=== PATIENT | female | born 1940 | race Caucasian/White ===

== ENCOUNTER 2017-12-08 08:59 | Emergency (ER) | payer OTHER ==
[~2017-12-08] VITALS: Ht 162.6 cm; Wt 74.0 kg
[~2017-12-08 08:59] MED LIST: ATOR10 PO
[2017-12-08 09:08] VITALS: BP 210/106; PULSE 55; RESP 18; TEMP 98.4; O2SAT 97
[2017-12-08] MEDS ORDERED: SODIUM CHLORIDE 0.9% FLUSH 10 ML FLUSH IVF PRN (09:15)
[2017-12-08] MEDS ORDERED: ASPIRIN 325 MG TAB PO ONE (09:15)
[2017-12-08] MEDS ORDERED: FAMOTIDINE 20 MG/2 ML VIAL IV PUSH ONE (09:15)
[2017-12-08] MEDS ORDERED: LIDOCAINE VISCOUS 2% SOLN 15 ML UDC PO ONE (09:15)
[2017-12-08] MEDS ORDERED: PANTOPRAZOLE SODIUM 40 MG VIAL IVP ONE (09:15)
[2017-12-08] MEDS ORDERED: ALUMINUM/MAGNESIUM/SIMETH 30 ML CUP PO ONE (09:15)
--- NOTE | 2017-12-08 09:15 | PD ---
HPI Chief Complaint: Chest Pain Time Seen by Provider: 09:11 Travel History International Travel<30 days: No Contact w/Intl Traveler<30days: No Traveled to known affect area: No History of Present Illness HPI Patient presents with complaints of left-sided chest pain radiating to her left neck and left arm. Reports a high intensity cardiac workout Sunday night which was difficult for her. States she was physically worn out on . Reports 3 days of constant left arm her neck and chest discomfort with uncontrolled indigestion. Denies any diaphoresis shortness of breath. Denies diabetes. Nonsmoker. Reports a cardiac history of SVT with ablation and hyperlipidemia. PFSH Past Medical History Cancer: Yes (LT BREAST) Cardiac Catheterization: Yes Cardiovascular Problems: Yes High Cholesterol: Yes Diminished Hearing: No ?: Not Past Surgical History Cardiac Surgery: Yes (ABLATION 2000 VTA) Gynecologic Surgery: Yes (LT LUMPECTOMY) Tonsillectomy: Yes Other Surgery: Yes (LEFT BREAST LUMPECTOMY) Social History Alcohol Use: Yes (SOCIAL) Tobacco Use: No Substance Use: No Allergies-Medications (Allergen,Severity, Reaction): Coded Allergies: iodine (Verified Allergy, Severe, Dizziness, 12/08/17) Reported Meds & Prescriptions Reported Meds & Active Scripts Active Reported Tylenol (Acetaminophen) 325 Mg Tab 325 Mg PO ONCE Famotidine 10 Mg Tab 10 Mg PO HS Atorvastatin (Atorvastatin Calcium) 20 Mg Tab 20 Mg PO HS Review of Systems General / Constitutional: No: Fever Eyes: No: Visual changes HENT: No: Headaches Cardiovascular: Positive: Chest Pain or Discomfort Respiratory: No: Shortness of Breath Gastrointestinal: No: Abdominal Pain Genitourinary: No: Dysuria Musculoskeletal: No: Pain Skin: No Rash Neurologic: No: Weakness Psychiatric: No: Depression Endocrine: No: Polydipsia Hematologic/Lymphatic: No: Easy Bruising Physical Exam Narrative GENERAL: Well-nourished, well-developed patient. SKIN: Focused skin assessment warm/dry. HEAD: Normocephalic. EYES: No scleral icterus. No injection or drainage. NECK: Supple, trachea midline. No JVD or lymphadenopathy. CARDIOVASCULAR: Regular rate and rhythm without murmurs, gallops, or rubs. RESPIRATORY: Breath sounds equal bilaterally. No accessory muscle use. GASTROINTESTINAL: Abdomen soft, non-tender, nondistended. MUSCULOSKELETAL: No cyanosis, or edema. BACK: Nontender without obvious deformity. No CVA tenderness. Data Data Last Documented VS Vital Signs Date Time Temp Pulse Resp B/P (MAP) Pulse Ox O2 Delivery O2 Flow Rate FiO2 12/08/17 10:32 68 18 179/80 (113) 97 Room Air 12/08/17 09:08 98.4 Orders Orders Electrocardiogram (12/08/17 09:11) Ckmb (Isoenzyme) Profile (12/08/17 09:11) Complete Blood Count With Diff (12/08/17 09:11) Comprehensive Metabolic Panel (12/08/17 09:11) Magnesium (Mg) (12/08/17 09:11) Prothrombin Time / Inr (Pt) (12/08/17 09:11) Act Partial Throm Time (Ptt) (12/08/17 09:11) Troponin I (12/08/17 09:11) Ecg Monitoring (12/08/17 09:11) Bilateral Bp Monitoring (12/08/17 09:11) Iv Access Insert/Monitor (12/08/17 09:11) Oximetry (12/08/17 09:11) Oxygen Administration (12/08/17 09:11) Aspirin (Aspirin) (12/08/17 09:15) Sodium Chloride 0.9% Flush (Ns Flush) (12/08/17 09:15) Chest, Pa & Lat (12/08/17 09:11) Pantoprazole Inj (Protonix Inj) (12/08/17 09:15) Famotidine Inj (Pepcid Inj) (12/08/17 09:15) Al-Mag Hy-Si 40-40-4 Mg/Ml Liq (Mag-Al P (12/08/17 09:15) Lidocaine 2% Viscous (Xylocaine 2% Visco (12/08/17 09:15) CKMB (12/08/17 09:04) CKMB% (12/08/17 09:04) Labs Laboratory Tests Test 12/08/17 09:04 12/08/17 09:05 Prothrombin Time 10.7 SEC Prothromb Time International Ratio 1.1 RATIO Activated Partial Thromboplast Time 26.1 SEC Blood Urea Nitrogen 17 MG/DL Creatinine 0.90 MG/DL Random Glucose 101 MG/DL Total Protein 7.5 GM/DL Albumin 3.6 GM/DL Calcium Level 8.8 MG/DL Magnesium Level 2.2 MG/DL Alkaline Phosphatase 51 U/L Aspartate Amino Transf (AST/SGOT) 22 U/L Alanine Aminotransferase (ALT/SGPT) 14 U/L Total Bilirubin 0.5 MG/DL Sodium Level 140 MEQ/L Potassium Level 3.8 MEQ/L Chloride Level 106 MEQ/L Carbon Dioxide Level 28.0 MEQ/L Anion Gap 6 MEQ/L Estimat Glomerular Filtration Rate 60 ML/MIN Total Creatine Kinase 170 U/L Creatine Kinase MB 0.8 NG/ML Troponin I LESS THAN 0.02 NG/ML White Blood Count 5.5 TH/MM3 Red Blood Count 4.43 MIL/MM3 Hemoglobin 14.2 GM/DL Hematocrit 41.4 % Mean Corpuscular Volume 93.4 FL Mean Corpuscular Hemoglobin 32.0 PG Mean Corpuscular Hemoglobin Concent 34.2 % Red Cell Distribution Width 13.5 % Platelet Count 174 TH/MM3 Mean Platelet Volume 8.6 FL Neutrophils (%) (Auto) 50.1 % Lymphocytes (%) (Auto) 40.4 % Monocytes (%) (Auto) 6.7 % Eosinophils (%) (Auto) 1.5 % Basophils (%) (Auto) 1.3 % Neutrophils # (Auto) 2.7 TH/MM3 Lymphocytes # (Auto) 2.2 TH/MM3 Monocytes # (Auto) 0.4 TH/MM3 Eosinophils # (Auto) 0.1 TH/MM3 Basophils # (Auto) 0.1 TH/MM3 CBC Comment DIFF FINAL Differential Comment MDM Medical Decision Making Medical Screen Exam Complete: Yes Emergency Medical Condition: Yes Differential Diagnosis Acute coronary syndrome, musculoskeletal pain, pneumonia Narrative Course Assessment and plan discussed with patient at bedside. EKG reveals sinus bradycardia rate of 55. Cardiac enzymes are negative. Last 72 hours Impressions Chest X-Ray 12/08/17 0911 Signed Impressions: Service Date/Time: Friday, December 08, 2017 09:25 - CONCLUSION: No acute disease. Hernán Vance MD Diagnosis Primary Impression: Musculoskeletal pain Patient Instructions: General Instructions Additional Instructions: Tylenol and Motrin for discomfort, encouraged exercises in moderation, follow- up with PCP, return to emergency with any onset of new symptoms. Med/Other Pt SpecificInfo: No Meds Exist/No RX given Disposition: 01 DISCHARGE HOME Condition: Good Isiah,Jaquan R. MD Dec 08, 2017 09:15
[2017-12-08] MEDS ORDERED: TYLE325T PO (09:16)
[2017-12-08] MEDS ORDERED: FAMO1TAB30 PO (09:16)
[2017-12-08] MEDS ORDERED: ATOR20TA15 PO (09:16)
[2017-12-08 09:18] VITALS: BP 183/86; PULSE 55; RESP 18; O2SAT 97
[2017-12-08 09:20] LABS: AUTOMATED NEUTROPHIL # 2.7 TH/MM3 (1.8-7.7); BASOPHIL # 0.1 TH/MM3 (0-0.2); BASOPHIL % 1.3 % (0.0-2.0); EOSINOPHIL # 0.1 TH/MM3 (0-0.4); EOSINOPHIL % 1.5 % (0.0-4.0); HEMATOCRIT 41.4 % (35.0-46.0); HEMOGLOBIN 14.2 GM/DL (11.6-15.3); LYMPH % 40.4 % (9.0-44.0); LYMPHOCYTE # 2.2 TH/MM3 (1.0-4.8); MEAN CELL VOLUME 93.4 FL (80.0-100.0); MEAN CORPUSCULAR HGB CONC 34.2 % (32.0-36.0); MEAN PLATELET VOLUME 8.6 FL (7.0-11.0); MONO % 6.7 % (0.0-8.0); MONOCYTE # 0.4 TH/MM3 (0-0.9); NEUT % 50.1 % (16.0-70.0); PLATELET COUNT 174 TH/MM3 (150-450); RED BLOOD COUNT 4.43 MIL/MM3 (4.00-5.30); RED CELL DISTRIBUTION WIDTH 13.5 % (11.6-17.2); WHITE BLOOD COUNT 5.5 TH/MM3 (4.0-11.0)
[2017-12-08 09:39] LABS: INTERNATIONAL NORMALIZED RATIO 1.1 RATIO; PROTHROMBIN TIME - PATIENT 10.7 SEC (9.8-11.6)
--- NOTE | 2017-12-08 09:39 | RADRPT ---
EXAM DATE/TIME: 12/08/2017 09:25 [facility] COMPARISON: No previous studies available for comparison. INDICATIONS : Chest pressure. MEDICAL HISTORY : None. SURGICAL HISTORY : Ablation ENCOUNTER: Initial ACUITY: 1 week PAIN SCORE: 0/10 LOCATION: Bilateral chest FINDINGS: The heart size is normal. The lungs are free of focal consolidation. There do appear to be a few scat tered calcified granulomas present. No effusion is seen. Clips are seen in the left axillary region. 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 CONCLUSION: No acute disease. Hernán Vance MD on December 08, 2017 at 9:37 Board Certified Radiologist. This report was verified electronically.
[2017-12-08 10:14] LABS: CHLORIDE 106 MEQ/L (98-107); SODIUM (NA) 140 MEQ/L (136-145)
[2017-12-08 10:18] LABS: ALBUMIN 3.6 GM/DL (3.4-5.0); BLOOD UREA NITROGEN 17 MG/DL (7-18); CALCIUM 8.8 MG/DL (8.5-10.1); GLUCOSE,RANDOM 101 MG/DL (74-106); MAGNESIUM 2.2 MG/DL (1.5-2.5)
[2017-12-08 10:21] LABS: ALT (GPT) 14 U/L (10-53); AST (GOT) 22 U/L (15-37); GLOMERULAR FILTRATION RATE 60 ML/MIN (>89)
[2017-12-08 10:23] LABS: TOTAL BILIRUBIN ADULT 0.5 MG/DL (0.2-1.0); TOTAL PROTEIN 7.5 GM/DL (6.4-8.2)
[2017-12-08 10:24] LABS: ALKALINE PHOSPHATASE 51 U/L (45-117)
[2017-12-08 10:26] LABS: TROPONIN I LESS THAN 0.02 NG/ML (0.02-0.05)
[2017-12-08 10:32] VITALS: BP 179/80; PULSE 68; RESP 18; O2SAT 97
[2017-12-08 10:52] VITALS: BP 184/90; PULSE 50; RESP 20; O2SAT 98
--- NOTE | 2017-12-08 12:45 | EKG ---
Date Performed: 12/08/2017 Time Performed: 09:05:39 PTAGE: 77 years EKG: SINUS BRADYCARDIA BORDERLINE ECG PREVIOUS TRACING : 07/13/2012 09.41 No significant change from previous tracing noted. DOCTOR: Jay Hoffmann Interpretating Date/Time 12/08/2017 12:44:33
== END 2017-12-08 11:02 | disposition home or self-care (01) ==
LOC: PHED 08:59
DX: M79.1 Myalgia (principal); R94.31 Abnormal electrocardiogram [ECG] [EKG]; E78.00 Pure hypercholesterolemia, unspecified; Z85.3 Personal history of malignant neoplasm of breast; Z79.899 Other long term (current) drug therapy
CPT/HCPCS: 71046; 80053; 82550; 82552; 83735; 84484; 85025; 85610; 85730; 93005; 96374; 96375; 99285; C9113